=== PATIENT | female | born 1990 | race Caucasian/White ===

== ENCOUNTER 2016-11-04 19:48 | Emergency (ER) | payer OTHER ==
[2016-11-04 19:52] VITALS: BMI 42.0
[2016-11-04 20:21] LABS: URINE APPEARANCE CLEAR; URINE BILIRUBIN NEGATIVE (NEGATIVE); URINE COLOR YELLOW; URINE GLUCOSE (UA) NEGATIVE (NEGATIVE); URINE KETONE NEGATIVE (NEGATIVE); URINE LEUK ESTERASE NEGATIVE (NEGATIVE); URINE NITRITE NEGATIVE (NEGATIVE); URINE PROTEIN NEGATIVE (NEGATIVE); URINE UROBILINOGEN NEGATIVE E.U./dl (0.2-1.0)
[2016-11-04 20:22] LABS: URINE BLOOD 1+ (NEGATIVE)
[2016-11-04] MEDS ORDERED: SODIUM CHLORIDE 1,000 ML IV STA (20:27)
[2016-11-04 20:28] LABS: URINE MUCUS RARE; URINE RBC 13 /hpf (0-3); URINE WBC <1 /hpf (3-5)
[2016-11-04] MEDS ORDERED: FAMOTIDINE 20 MG/50 ML IVPB 50 ML IVPB ONE ×2 (20:28→20:31)
[2016-11-04] MEDS ORDERED: MAG HYDROX/AL HYDROX/SIMETH 30 ML UNIT-DOSE CUP PO ONE (20:28)
[2016-11-04] MEDS ORDERED: ONDANSETRON 4 MG/2 ML VIAL IVPUSH ONE (20:28)
[2016-11-04] MEDS ORDERED: MAG HYDROX/AL HYDROX/SIMETH 30 ML UNIT-DOSE CUP ONE (20:30)
[2016-11-04] MEDS ORDERED: ONDANSETRON 4 MG/2 ML VIAL ONE (20:31)
--- NOTE | 2016-11-04 20:32 | PDOC ---
History of Present Illness - General Chief Complaint: Pain Stated Complaint: ABD PAIN/VOMITING Time Seen by Provider: 11/04/16 20:08 History Source: Patient - History of Present Illness Timing/Duration: reports: constant Quality: reports: burning Abdominal Pain Onset Location: reports: epigastric Past History - Past Medical History Allergies/Adverse Reactions: Allergies Allergy/AdvReac Type Severity Reaction Status Date / Time No Known Allergies Allergy Verified 11/04/16 19:52 Home Medications: Ambulatory Orders Pnv with Ca,No.72/Iron/FA [ Plus Tablet] 1 each PO DAILY 04/23/15 Ibuprofen [Motrin -] 400 mg PO QID #28 tablet 05/06/15 Acetaminophen [Tylenol] 650 mg PO Q6H #30 tablet 11/04/16 Ondansetron HCl [Zofran] 4 mg PO Q8H #15 tablet 11/04/16 Asthma: No Cancer: No Cardiac Disorders: No Diabetes: No HTN: No Seizures: No Thyroid Disease: No - Psycho/Social/Smoking Cessation Hx Suicidal Ideation: No Smoking History: Never smoked Have you smoked in the past 12 months: No Hx Alcohol Use: No Drug/Substance Use Hx: No Hx Substance Use Treatment: No Review of Systems - Review of Systems Constitutional: Yes: Weakness. No: Fever ABD/GI: Yes: Diarrhea, Nausea, Vomiting. No: Blood Streaked Bowels, Tarry Stools : No: Dysuria *Physical Exam - Vital Signs Last Vital Signs Temp Pulse Resp BP Pulse Ox 97.9 F 106 H 20 155/79 99 11/04/16 19:49 11/04/16 19:49 11/04/16 19:49 11/04/16 19:49 11/04/16 19:49 - Physical Exam General Appearance: Yes: Appropriately Dressed. No: Apparent Distress HEENT: positive: Normal Voice Neck: positive: Supple Respiratory/Chest: positive: Lungs Clear, Normal Breath Sounds. negative: Respiratory Distress Cardiovascular: positive: S1, S2, Tachycardia Gastrointestinal/Abdominal: positive: Normal Bowel Sounds, Tender, Soft. negative: Distended, Guarding, Rebound, Hepatomegaly, Spleenomegaly Musculoskeletal: negative: CVA Tenderness Integumentary: positive: Dry, Warm Neurologic: positive: Fully Oriented, Alert, Normal Mood/Affect ED Treatment Course - LABORATORY CBC & Chemistry Diagram: 11/04/16 20:40 11/04/16 20:40 - ADDITIONAL ORDERS Additional order review: Laboratory Results 11/04/16 20:13 Urine Color Yellow Urine Appearance Clear Urine pH 5.0 Ur Specific [place] 1.031 Urine Protein Negative Urine Glucose (UA) Negative Urine Ketones Negative Urine Blood 1+ H Urine Nitrite Negative Urine Bilirubin Negative Urine Urobilinogen Negative Ur Leukocyte Esterase Negative Urine HCG, Qual Negative Medical Decision Making - Medical Decision Making 11/04/16 20:28 25-year-old female, denies any past medical history, here with epigastric pain with nausea vomiting and diarrhea. Patient reports that symptoms started 2 days ago. Describes epigastric pain as burning in nature and constant with an intensity of 9 out of 10. States she has not been able to eat for 2 days because each time she eats, she vomits. Patient reporting over 20 episodes of non-bilious, non-bloody vomitus and numerous episodes of non-bloody, watery diarrhea. No fever or chills. Denies any unusual food sick contacts, recent travel or recent antibiotic use. No history of similar episode. See exam Epigastric pain w/ n/v/d Tachy in ED but in NAD +ttp to epigastric region, no RUQ ttp ?gastritis vs gastroenteritis vs biliary source -IVF -zofran -pain control -labs -reassess 11/04/16 21:44 11/04/16 22:33 Pt reports feeling significantly better and requesting discharge. Able to reynaldo po. Labs wnl. Supportive treatment at home. 11/04/16 22:34 11/04/16 22:49 11/04/16 22:49 *DC/Admit/Observation/Transfer Diagnosis at time of Disposition: Viral gastroenteritis - Discharge Dispostion Disposition: HOME Condition at time of disposition: Improved - Prescriptions Prescriptions: Acetaminophen [Tylenol] 650 mg PO Q6H #30 tablet Ondansetron HCl [Zofran] 4 mg PO Q8H #15 tablet - Referrals Referrals: Estela Jackson MD [Primary Care Provider] - - Patient Instructions Printed Discharge Instructions: DI for Viral Gastroenteritis -- Adult Additional Instructions: Gillespie anlisis de bello fue normal. Lo ms probable es que tenga [place] condicin viral que llevar tiempo mejorar. Te enviamos a casa con nuseas y analgsicos. Mantener la hidratacin adecuada, para el dodie de jamaal sntomas, mantener [place] dieta suave mitra pltanos, arroz, compota de manzana y ibarra inessa. Estos alimentos pueden ayudar a hacer jamaal heces ms firmes y tambin repleto ciertamente electrolitos esenciales. Por favor, siga con gillespie mdico de atencin primaria segn sea necesario y si los sntomas empeoran, regrese a ED Print Language: AMHARIC
[2016-11-04 20:44] LABS: BASOPHIL 0.2 % (0-2.0); EOSINOPHIL 0.3 % (0-4.5); MCH 27.1 pg (25.7-33.7); MCHC 33.2 g/dl (32.0-36.0); MEAN CELL VOLUME 81.7 fl (80-96); MEAN PLT VOLUME 8.9 fl (7.5-11.1); NEUTROPHILS 90.6 % (42.8-82.8); PLATELET COUNT 207 K/MM3 (134-434); RDW 14.9 % (11.6-15.6); WHITE BLOOD COUNT 8.3 K/mm3 (4.0-10.0)
[2016-11-04 21:10] LABS: ALBUMIN 3.8 g/dl (3.4-5.0); ALK PHOS 89 U/L (45-117); ANION GAP 10 (8-16); BILIRUBIN,TOTAL 0.4 mg/dL (0.2-1.0); CALCIUM 8.1 mg/dL (8.5-10.1); CO2 24 mmol/L (21-32); CREATININE 0.6 mg/dL (0.55-1.02); GLUCOSE,RANDOM 90 mg/dL (74-106); SGOT/AST 16 U/L (15-37); SGPT/ALT 24 U/L (12-78); TOT PROT 7.8 g/dl (6.4-8.2)
[2016-11-04] MEDS ORDERED: KETOROLAC TROMETHAMINE 30 MG/1 ML VIAL IVPUSH ONE (21:51)
[2016-11-04] MEDS ORDERED: KETOROLAC TROMETHAMINE 30 MG/1 ML VIAL ONE (21:58)
[2016-11-04 23:01] VITALS: BP 113/63; PULSE 88; TEMP 98.4
== END 2016-11-04 23:00 | disposition home or self-care (01) ==
LOC: JER 19:48
PROC: 3E0333Z Introduction of Anti-inflammatory into Peripheral Vein, Percutaneous Approach (ICD-10-PCS; principal; 2016-11-04)
PROC: 3E033GC Introduction of Other Therapeutic Substance into Peripheral Vein, Percutaneous Approach (ICD-10-PCS; 2016-11-04)
PROC: 3E0337Z Introduction of Electrolytic and Water Balance Substance into Peripheral Vein, Percutaneous Approach (ICD-10-PCS; 2016-11-04)
DX: A08.4 Viral intestinal infection, unspecified (principal); B97.89 Other viral agents as the cause of diseases classified elsewhere
CPT/HCPCS: 36415; 80053; 81003; 81015; 84703; 85025; 96361; 96365; 96375; 99282-25

== ENCOUNTER 2018-10-03 08:43 | Emergency (ER) | payer OTHER ==
[2018-10-03 08:58] VITALS: BP 142/90; PULSE 90; TEMP 97.9; BMI 43.0
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
[2018-10-03] MEDS ORDERED: LIDOCAINE 5% TOPICAL PATCH TP ONE (09:48)
[2018-10-03] MEDS ORDERED: ACETAMINOPHEN 325 MG TABLET (FP) PO ONE (09:48)
[2018-10-03] MEDS ORDERED: ACETAMINOPHEN 325 MG TABLET (FP) ONE (09:52)
[2018-10-03] MEDS ORDERED: LIDOCAINE 5% TOPICAL PATCH ONE (09:52)
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
[2018-10-03] MEDS ORDERED: CYCLOBENZAPRINE HCL 10 MG TABLET (FP) PO ONE (11:46)
[2018-10-03] MEDS ORDERED: IBUPROFEN 400 MG TABLET (FP) PO ONE ×2 (11:46→11:52)
[2018-10-03] MEDS ORDERED: CYCLOBENZAPRINE HCL 10 MG TABLET (FP) ONE (11:52)
--- NOTE | 2018-10-03 16:52 | EKG ---
Test Reason : Blood Pressure : / mmHG Vent. Rate : 091 BPM Atrial Rate : 091 BPM P-R Int : 134 ms QRS Dur : 084 ms QT Int : 352 ms P-R-T Axes : 068 064 048 degrees QTc Int : 432 ms NORMAL SINUS RHYTHM NORMAL ECG NO PREVIOUS ECGS AVAILABLE Confirmed by DIAMOND CARTER MD ([id number]) on 10/03/2018 4:52:40 PM Referred By: Confirmed By:DIAMOND CARTER MD
[2018-10-03] MEDS ORDERED: LIDOCAINE PATCH REMOVAL MC SCH (22:00)
== END 2018-10-03 12:17 | disposition home or self-care (01) ==
LOC: JER 08:43
DX: S60.221A Contusion of right hand, initial encounter (principal); V43.02XA Car driver injured in collision with other type car in nontraffic accident, initial encounter; Y93.89 Activity, other specified; Y92.410 Unspecified street and highway as the place of occurrence of the external cause
CPT/HCPCS: 71046-TC-FY; 71120-TC-FY; 73110-TC-LT-FY; 73130-TC-LT-FY; 84703; 93005; 93010; 99282-25

== ENCOUNTER 2019-04-03 18:09 | Emergency (ER) | payer OTHER ==
--- NOTE | 2019-04-03 18:18 | PDOC ---
Rapid Medical Evaluation Chief Complaint: Pain Time Seen by Provider: 04/03/19 18:14 Medical Evaluation: Allergies Allergy/AdvReac Type Severity Reaction Status Date / Time No Known Allergies Allergy Verified 10/03/18 08:55 04/03/19 18:15 28 breast pain and swelling / erythema x 4 days. c/o fever last night PE: patient alert ox3 A: breast wound P: patient to the ER for further management of care. Discharge Disposition - Diagnosis Breast wound Qualifiers: Encounter type: initial encounter Laterality: right Qualified Code(s): S21.001A - Unspecified open wound of right breast, initial encounter - Referrals - Patient Instructions - Post Discharge Activity
[2019-04-03 18:21] VITALS: BP 138/74; PULSE 80; TEMP 98.2; BMI 48.8
--- NOTE | 2019-04-03 19:24 | PDOC ---
History of Present Illness - General Chief Complaint: Pain Stated Complaint: BREST PROBLEM Time Seen by Provider: 04/03/19 18:14 History Source: Patient - History of Present Illness Initial Comments: 04/03/19 19:19 Chief complaint: Pain breast pt is a 28-year-old female, healthy, not or breast-feeding. she states 4 days ago she developed a pimple to the outside of her right breast. She states that yesterday she had a fever, started unknown antibiotic from [place]. She states there was blood coming out today. No fever today , did not take any pain medicine today. GENERAL/CONSTITUTIONAL: +fever, no: weakness. dizziness HEAD, EYES, EARS, NOSE AND THROAT: No change in vision. No ear pain or discharge. No sore throat. CARDIOVASCULAR: No chest pain RESPIRATORY: No shortness of breath or cough GASTROINTESTINAL: No pain, nausea, vomiting, diarrhea or constipation GENITOURINARY: No dysuria MUSCULOSKELETAL: No neck or back pain SKIN: No rash, + infection NEUROLOGIC: No headache, vertigo, loss of consciousness, or loss of sensation. GENERAL: The patient is awake, alert, and fully oriented, in no acute distress. HEAD: Normal with no signs of trauma. EYES: Pupils equal, round and reactive to light, sclera anicteric, conjunctiva clear. ENT: pharynx: no erythema, no exudate, uvula midline NECK: supple CHEST: clear, nontender, rr, breast with 4 cm erythematous area, with Center, no appreciable abscess, soft and minimally tender ABD: soft, nontender BACK: no tenderness or signs of injury EXTREMITIES: Normal range of motion, no edema. NEUROLOGICAL: Normal speech, normal gait. SKIN: Warm, Dry Past History - Past Medical History Allergies/Adverse Reactions: Allergies Allergy/AdvReac Type Severity Reaction Status Date / Time No Known Allergies Allergy Verified 04/03/19 18:16 Home Medications: Ambulatory Orders Acetaminophen 325 mg PO Q8H PRN #21 tablet 10/03/18 Cyclobenzaprine HCl [Flexeril 10 mg] 10 mg PO Q8H PRN #15 tablet 10/03/18 Ibuprofen 600 mg PO Q8H PRN #21 tablet 10/03/18 Cephalexin [Keflex] 1,000 mg PO BID #28 capsule 04/03/19 Sulfamethoxazole/Trimethoprim [Bactrim Ds Tablet] 1 each PO BID #14 tablet 04/03 Asthma: No Cancer: No Cardiac Disorders: No COPD: No Diabetes: No HTN: No Seizures: No Thyroid Disease: No - Immunization History Immunization Up to Date: Yes - Suicide/Smoking/Psychosocial Hx Smoking History: Never smoked Have you smoked in the past 12 months: No Hx Alcohol Use: No Drug/Substance Use Hx: No Hx Substance Use Treatment: No *Physical Exam - Vital Signs Last Vital Signs Temp Pulse Resp BP Pulse Ox 98.2 F 80 17 138/74 98 04/03/19 18:16 04/03/19 18:16 04/03/19 18:16 04/03/19 18:16 04/03/19 18:16 Medical Decision Making - Medical Decision Making 04/03/19 19:23 Well-appearing 28-year-old female, with right breast cellulitis, that started as a pimple 4 days ago, fever yesterday but she started unknown antibiotic from [place]. No fever today patient states it was draining earlier. There is no sign of abscess on exam. No indication for further procedure/I&D. Patient informed not to take anymore of her antibiotic, will give her Keflex and Bactrim. She will follow up and return if he gets worse Discussed issues, findings, results, applicable medications and treatments and follow-up. All these were understood and all questions were answered *DC/Admit/Observation/Transfer Diagnosis at time of Disposition: Cellulitis of right breast Breast wound Qualifiers: Encounter type: initial encounter Laterality: right Qualified Code(s): S21.001A - Unspecified open wound of right breast, initial encounter - Discharge Dispostion Disposition: HOME Condition at time of disposition: Stable - Prescriptions Prescriptions: Cephalexin [Keflex] 1,000 mg PO BID #28 capsule Sulfamethoxazole/Trimethoprim [Bactrim Ds Tablet] 1 each PO BID #14 tablet - Referrals Referrals: Estela Jackson MD [Primary Care Provider] - Hamilton Chi MD [Staff Physician] - - Patient Instructions Printed Discharge Instructions: DI for Cellulitis -- Adult Additional Instructions: Clean with soap and water 2-3 times daily, apply bacitracin Have her reevaluated if redness, pus, fever or getting worse Followup with your doctor The Keflex and Bactrim as prescribed, until finished. Do not take any other antibiotics you have in your home. Follow-up breast surgeon - Post Discharge Activity
== END 2019-04-03 19:35 | disposition home or self-care (01) ==
LOC: JERFT 18:09
DX: N61.0 Mastitis without abscess (principal)
CPT/HCPCS: 99281-25

== ENCOUNTER 2022-03-02 00:43 | Emergency (ER) | payer OTHER ==
[2022-03-02] MEDS ORDERED: KETOROLAC TROMETHAMINE 15 MG/ML VIAL IVPUSH ONE (02:55)
[2022-03-02] MEDS ORDERED: DEXAMETHASONE SOD PHOSPHATE 10 MG/1 ML VIAL IVPUSH ONE (02:55)
[2022-03-02] MEDS ORDERED: LACTATED RINGERS SOLUTION 1000 ML INFUS.BAG IV ONE (02:55)
[2022-03-02 03:46] VITALS: BP 160/94; PULSE 80; RESP 18; TEMP 98.9; BMI 44.9
[2022-03-02] MEDS ORDERED: KETOROLAC TROMETHAMINE 15 MG/ML VIAL ONE (04:32)
[2022-03-02] MEDS ORDERED: DEXAMETHASONE SOD PHOSPHATE 10 MG/1 ML VIAL ONE (04:32)
[2022-03-02 04:43] LABS: BASO % 0.6 % (0-2.0); EOS % 2.5 % (0-4.5); HEMATOCRIT 35.9 % (32.4-45.2); HEMOGLOBIN 11.8 GM/dL (10.7-15.3); MCH 26.6 pg (25.7-33.7); MEAN CELL VOLUME 80.6 fl (80-96); MEAN PLT VOLUME 8.4 fl (7.5-11.1); MONO % 4.7 % (3.8-10.2); NEUT % 64.2 % (42.8-82.8); PLATELET COUNT 296 10^3/uL (134-434); RBC 4.45 M/mm3 (3.60-5.2); WHITE BLOOD COUNT 9.4 K/mm3 (4.0-10.0)
[2022-03-02 05:02] LABS: ALBUMIN 3.6 g/dl (3.4-5.0); BLOOD UREA NITROGEN 10.9 mg/dL (7-18)
[2022-03-02 05:05] LABS: CREATININE 0.7 mg/dL (0.55-1.3)
[2022-03-02 05:06] LABS: BILIRUBIN,TOTAL 0.3 mg/dL (0.2-1)
[2022-03-02 05:07] LABS: TOT PROT 7.7 g/dl (6.4-8.2)
[2022-03-02 05:14] LABS: THROAT:GRP A STREP NOT DETECTED (NOTDETECTED)
== END 2022-03-02 05:40 | disposition home or self-care (01) ==
LOC: JER 00:43
PROC: 3E033GC Introduction of Other Therapeutic Substance into Peripheral Vein, Percutaneous Approach (ICD-10-PCS; principal; 2022-03-02)
DX: U07.1 COVID-19 (principal)
CPT/HCPCS: 0241U-QW; 36415; 80053; 85025; 87651; 99284-25; J1100

== ENCOUNTER 2022-08-24 04:30 | Day surgery (SDC) | payer OTHER ==
[2022-08-23 10:10] VITALS: BMI 53.0
[2022-08-24 10:33] VITALS: TEMP 98
[2022-08-24 11:07] VITALS: BP 123/70; PULSE 71; RESP 20
== END 2022-08-24 11:09 | disposition home or self-care (01) ==
LOC: JASU-ENDO 04:30
PROVIDERS: ATTEND Internal Medicine Gastroenterology
PROC: 0DB78ZX Excision of Stomach, Pylorus, Via Natural or Artificial Opening Endoscopic, Diagnostic (ICD-10-PCS; principal; 2022-08-24 10:00)
DX: Z01.818 Encounter for other preprocedural examination (principal); K29.50 Unspecified chronic gastritis without bleeding; B96.81 Helicobacter pylori [H. pylori] as the cause of diseases classified elsewhere; E66.01 Morbid (severe) obesity due to excess calories; Z68.43 Body mass index [BMI] 50.0-59.9, adult
CPT/HCPCS: 81025; 88305-TC; 88342-TC